=== PATIENT | female | born 1970 | race Caucasian/White ===

== ENCOUNTER 2017-01-16 08:21 | Outpatient (CLI) | payer OTHER ==
[~2017-01-16 08:21] MED LIST: ALDACTONE25 MG PO; HARD NAILS2.5 MG PO; IBUPROFEN400 MG PO; MILK THISTLE140 MG; MINOCYCLINE HC100 MG PO; MULTIVITAMIN1 TAB PO; VITAMIN E200 UNIT PO
--- NOTE | 2017-01-16 17:12 | DIAGNOSTIC IMAGING REPORT ---
PROCEDURE: MG BILATERAL SCREENING W/CAD INDICATION: SCREENING TECHNIQUE: Standard CC and MLO views bilaterally. Computer aided detection was used. COMPARISON: 01/29/2015, 07/01/2014, 06/27/2013 FINDINGS: Breast size is chronically asymmetric. Moderately dense fibroglandular tissue is present bilaterally. No developing densities, areas of architectural distortion, or suspicious microcalcifications. IMPRESSION: 1. Stable mammograms without radiographic evidence of malignancy. RESULT CODE: 1- Negative. A. A negative report should not delay biopsy if a dominant or clinically suspicious mass is present. 10-15% of cancers are not identified by x-ray. B. A negative report may reinforce clinical impression. C. Adenosis and dense breasts may obscure an underlying neoplasm. D. False positive reports average 6-10%. E.. A yearly screening mammogram is recommended. A reminder letter will be scheduled.
== END 2017-01-16 23:00 ==
LOC: MAM SRH 08:21
DX: Z12.31 Encounter for screening mammogram for malignant neoplasm of breast (principal)